=== PATIENT | male | born 1975 | race Caucasian/White ===

== ENCOUNTER 2024-04-11 07:57 | Day surgery (SDC) | payer OTHER ==
[~2024-04-11] VITALS: Ht 177.8 cm; Wt 116.8 kg
[~2024-04-11 07:57] MED LIST: RINGERS SOLUTION,LACTATED 1,000 ML IV ONE
[2024-04-11] MEDS ORDERED: BUPIVACAINE HCL/PF 0.5% 30 ML VIAL ONE (09:13)
[2024-04-11] MEDS ORDERED: LIDOCAINE/PF 2% 5 ML VIAL ONE (09:13)
[2024-04-11] MEDS ORDERED: BUPIVACAINE HCL/PF 0.5% 10 ML VIAL ONE (09:13)
[2024-04-11] MEDS ORDERED: MUPIROCIN CALCIUM 2% 22 GM OINTMENT ONE (09:14)
[2024-04-11] MEDS ORDERED: ATOR40TA28 PO (09:35)
[2024-04-11] MEDS ORDERED: CHOL200059 PO (09:35)
[2024-04-11] MEDS ORDERED: METF-1211 PO (09:35)
[2024-04-11] MEDS ORDERED: METO25 PO (09:35)
[2024-04-11] MEDS ORDERED: NIFE-141 PO (09:35)
[2024-04-11] MEDS ORDERED: LISI-893 PO (09:35)
[2024-04-11 09:37] LABS: BASOPHILS % (AUTO) 0.5 % (0.0-2.0); EOSINOPHILS % (AUTO) 2.2 % (1.0-6.0); HEMATOCRIT 42.7 % (41-53); HEMOGLOBIN 14.1 g/dL (13.5-17.5); LYMPHOCYTES # (AUTO) 3.5 K/uL (1.0-4.8); LYMPHOCYTES % (AUTO) 47.5 % (22.0-44.0); MEAN CORPUSCULAR HEMOGLOBIN 27.5 pg (26.0-34.0); MEAN CORPUSCULAR VOLUME 83 fL (80-100); MONOCYTES # (AUTO) 0.5 K/uL (0.1-1.0); MONOCYTES % (AUTO) 7.1 % (2.0-9.0); NEUTROPHILS # (AUTO) 3.1 K/uL (1.8-7.7); NEUTROPHILS % (AUTO) 42.7 % (40.0-70.0); PLATELET COUNT (AUTO) 229 K/uL (150-450); RED BLOOD CELL COUNT(AUTO) 5.11 MIL/uL (4.50-5.90); RED CELL DISTRIBUTION WIDTH 13.4 % (11.5-14.5); WHITE BLOOD COUNT (AUTO) 7.3 K/uL (4.5-11.0)
[2024-04-11 09:45] LABS: ANION GAP 9 mmol/L (8-16); CALCIUM, TOTAL 8.8 mg/dL (8.8-10.5); CARBON DIOXIDE 27 mmol/L (22-29); CHLORIDE 105 mmol/L (98-107); CREATININE 1.11 mg/dL (0.60-1.30); GLOMERULAR FILTR. RATE CALC > 60 mL/min (>60); GLUCOSE,RANDOM 109 mg/dL (70-110); POTASSIUM 4.7 mmol/L (3.5-5.1); SODIUM SERUM 141 mmol/L (136-145); UREA NITROGEN, BLOOD 14 mg/dL (7-18)
[2024-04-11 09:51] LABS: PROTHROMBIN TIME 10.3 SEC (9.4-11.6)
[2024-04-11] MEDS: RINGERS SOLUTION,LACTATED 1,000 ML IV ONE (10:23)
[2024-04-11] MEDS ORDERED: MEPERIDINE-PF 25 MG/ML VIAL IVP PRN (10:30)
[2024-04-11] MEDS ORDERED: HYDROmorphone HCL 2 MG/ML SYRINGE IVP PRN (10:30)
[2024-04-11] MEDS: BUPIVACAINE HCL/PF 0.5% 10 ML VIAL IM ONE (11:30)
[2024-04-11] MEDS: MUPIROCIN CALCIUM 2% 15 GM CREAM TP ONE (11:35)
[2024-04-11] MEDS ORDERED: PROPOFOL 1% 20 ML VIAL IVP ONE (12:00)
[2024-04-11] MEDS ORDERED: ROCURONIUM BROMIDE 10 MG/ML 5 ML VIAL IVP ONE (12:00)
[2024-04-11] MEDS ORDERED: SUGAMMADEX SODIUM 200 MG/2 ML VIAL IVP ONE (12:00)
[2024-04-11] MEDS ORDERED: LIDOCAINE/PF 2% 5 ML VIAL IM ONE (12:00)
[2024-04-11] MEDS ORDERED: CeFAZolin SODIUM 1 GM VIAL IVP ONE (12:00)
[2024-04-11] MEDS ORDERED: MIDAZOLAM HCL 2 MG/2 ML VIAL IVP ONE (12:00)
[2024-04-11] MEDS ORDERED: FentaNYL CITRATE PF 100 MCG/2 ML VIAL IVP ONE (12:00)
[2024-04-11] MEDS ORDERED: ONDANSETRON HCL 4 MG/2 ML VIAL IVP ONE (12:00)
[2024-04-11] MEDS: FentaNYL CITRATE PF 100 MCG/2 ML VIAL IVP PRN (12:38)
[2024-04-11] MEDS ORDERED: FentaNYL CITRATE PF 100 MCG/2 ML VIAL ONE (12:38)
[2024-04-11] MEDS ORDERED: OXYGEN THERAPY IH SCH (20:00)
== END 2024-04-11 13:55 | disposition home or self-care (01) ==
LOC: SURGERY 07:57
PROVIDERS: ATTEND Orthopaedic Surgery
DX: G56.01 Carpal tunnel syndrome, right upper limb (principal); I10 Essential (primary) hypertension; E11.9 Type 2 diabetes mellitus without complications; E78.00 Pure hypercholesterolemia, unspecified; G47.30 Sleep apnea, unspecified; Z87.891 Personal history of nicotine dependence; Z79.1 Long term (current) use of non-steroidal anti-inflammatories (NSAID); Z79.82 Long term (current) use of aspirin; Z79.84 Long term (current) use of oral hypoglycemic drugs; Z79.899 Other long term (current) drug therapy; Z80.0 Family history of malignant neoplasm of digestive organs
CPT/HCPCS: 80048; 85025; 85610; 85730; 93005; J0690; J2250; J2405; J2704; J3010; J3490; J7120